=== PATIENT | male | born 1940 | race Two or more races ===

== ENCOUNTER 2017-10-29 15:20 | Outpatient (CLI) | payer OTHER ==
[~2017-10-29 15:20] MED LIST: ASA-EC81 MG; CIPRO500 MG PO; FINASTERIDE5 MG; LIPITOR20 MG; SYNTHROID50 MCG
== END 2017-10-29 15:28 | disposition home or self-care (01) ==
LOC: LAB 15:20
DX: D72.821 Monocytosis (symptomatic) (principal); D51.3 Other dietary vitamin B12 deficiency anemia; D51.1 Vitamin B12 deficiency anemia due to selective vitamin B12 malabsorption with proteinuria; I10 Essential (primary) hypertension; I48.2 Chronic atrial fibrillation; E03.8 Other specified hypothyroidism; E78.2 Mixed hyperlipidemia; N40.0 Benign prostatic hyperplasia without lower urinary tract symptoms; D50.8 Other iron deficiency anemias; D51.8 Other vitamin B12 deficiency anemias; D55.0 Anemia due to glucose-6-phosphate dehydrogenase [G6PD] deficiency; E04.2 Nontoxic multinodular goiter; E06.3 Autoimmune thyroiditis

== ENCOUNTER 2017-11-01 08:04 | Outpatient (CLI) | payer OTHER | END 2017-11-01 11:51 | disposition home or self-care (01) | LOC: SONOGRAMA 08:04 | DX: E04.2 Nontoxic multinodular goiter (principal); E03.8 Other specified hypothyroidism; D72.821 Monocytosis (symptomatic); D51.3 Other dietary vitamin B12 deficiency anemia; D51.1 Vitamin B12 deficiency anemia due to selective vitamin B12 malabsorption with proteinuria; I10 Essential (primary) hypertension; I48.2 Chronic atrial fibrillation; E78.2 Mixed hyperlipidemia; N40.0 Benign prostatic hyperplasia without lower urinary tract symptoms; E06.3 Autoimmune thyroiditis ==

== ENCOUNTER 2017-11-19 07:52 | Outpatient (CLI) | payer OTHER | END 2017-11-19 08:48 | disposition home or self-care (01) | LOC: RAD 07:52 | DX: M77.31 Calcaneal spur, right foot (principal); M77.32 Calcaneal spur, left foot ==

== ENCOUNTER 2018-02-25 07:46 | Outpatient (CLI) | payer OTHER | END 2018-02-25 07:57 | disposition home or self-care (01) | LOC: LAB 07:46 | DX: D51.1 Vitamin B12 deficiency anemia due to selective vitamin B12 malabsorption with proteinuria (principal); D72.821 Monocytosis (symptomatic); D51.3 Other dietary vitamin B12 deficiency anemia; I10 Essential (primary) hypertension; I48.2 Chronic atrial fibrillation; E03.8 Other specified hypothyroidism; E78.2 Mixed hyperlipidemia; N40.0 Benign prostatic hyperplasia without lower urinary tract symptoms; D50.8 Other iron deficiency anemias; D51.8 Other vitamin B12 deficiency anemias; D51.0 Vitamin B12 deficiency anemia due to intrinsic factor deficiency ==

== ENCOUNTER 2018-07-01 07:39 | Outpatient (CLI) | payer OTHER | END 2018-07-01 07:48 | disposition home or self-care (01) | LOC: LAB 07:39 | DX: D51.0 Vitamin B12 deficiency anemia due to intrinsic factor deficiency (principal); D51.1 Vitamin B12 deficiency anemia due to selective vitamin B12 malabsorption with proteinuria; D72.821 Monocytosis (symptomatic); D51.3 Other dietary vitamin B12 deficiency anemia; I10 Essential (primary) hypertension; I48.2 Chronic atrial fibrillation; E03.8 Other specified hypothyroidism; E78.2 Mixed hyperlipidemia; N40.0 Benign prostatic hyperplasia without lower urinary tract symptoms ==

== ENCOUNTER → 2019-01-20 | Outpatient (CLI) | payer OTHER | END | disposition home or self-care (01) | LOC: LAB 07:34 | DX: D51.0 Vitamin B12 deficiency anemia due to intrinsic factor deficiency (principal); D51.1 Vitamin B12 deficiency anemia due to selective vitamin B12 malabsorption with proteinuria; D72.821 Monocytosis (symptomatic); D51.3 Other dietary vitamin B12 deficiency anemia; I10 Essential (primary) hypertension; I48.2 Chronic atrial fibrillation; E03.8 Other specified hypothyroidism; E78.2 Mixed hyperlipidemia; N40.0 Benign prostatic hyperplasia without lower urinary tract symptoms; D50.8 Other iron deficiency anemias; D51.8 Other vitamin B12 deficiency anemias; R97.0 Elevated carcinoembryonic antigen [CEA]; R97.8 Other abnormal tumor markers ==

== ENCOUNTER → 2019-08-04 07:14 | Outpatient (CLI) | payer OTHER | END | disposition home or self-care (01) | LOC: LAB 07:14 | DX: D51.0 Vitamin B12 deficiency anemia due to intrinsic factor deficiency (principal); D51.1 Vitamin B12 deficiency anemia due to selective vitamin B12 malabsorption with proteinuria; D72.821 Monocytosis (symptomatic); D51.3 Other dietary vitamin B12 deficiency anemia; E03.8 Other specified hypothyroidism; E78.2 Mixed hyperlipidemia; N40.0 Benign prostatic hyperplasia without lower urinary tract symptoms; D50.8 Other iron deficiency anemias; K90.89 Other intestinal malabsorption; R97.0 Elevated carcinoembryonic antigen [CEA]; R97.8 Other abnormal tumor markers; R97.20 Elevated prostate specific antigen [PSA] ==

== ENCOUNTER 2021-09-28 14:42 | Outpatient (CLI) | payer OTHER | END 2021-09-28 14:50 | disposition home or self-care (01) | LOC: RAD 14:42 | PROVIDERS: ATTEND Internal Medicine Cardiovascular Disease | DX: M17.11 Unilateral primary osteoarthritis, right knee (principal) ==

== ENCOUNTER 2022-11-29 15:20 | Outpatient (CLI) | payer OTHER | END 2022-11-29 15:31 | disposition home or self-care (01) | LOC: SONOGRAMA 15:20 | PROVIDERS: ATTEND Urology | DX: R33.9 Retention of urine, unspecified (principal); N40.0 Benign prostatic hyperplasia without lower urinary tract symptoms; N47.6 Balanoposthitis ==

== ENCOUNTER 2023-07-16 06:47 | Outpatient (CLI) | payer OTHER ==
[2023-07-16 08:16] LABS: HEMATOCRIT 43.7 % (39.0-48.0); HEMOGLOBIN 14.4 g/dL (13-16.00); MEAN CORPUSCULAR HEMOGLOBIN 30.6 pg (27.00-32.0); MEAN CORPUSCULAR HGB CONC 32.9 g/dl (32.0-36.0); PLATELET COUNT 143 K/uL (150-450); RED CELL DISTRIBUTION WIDTH 13.8 % (11.5-14.5)
[2023-07-16 08:56] LABS: MANUAL PLATELET COUNT 220
[2023-07-16 08:57] LABS: PLATELET ESTIMATE NORMAL (NORMAL)
[2023-07-16 09:13] LABS: ALBUMIN 4.1 gm/dL (3.4-5.0); BILIRUBIN TOTAL 0.8 mg/dL (0.3-1.2); CALCIUM 8.8 mg/dL (8.5-10.1); CREATININE SERUM 1.02 mg/dL (0.70-1.30); GFR 70.27; GLOBULINA 2.6 G/DL (2.4-3.5); POTASSIUM 4.21 mEq/L (3.5-5.1); PROSTATIC SPECIFIC ANTIGEN 2.14 NG/ML (0.010-4.00); TOTAL PROTEIN 6.7 gm/dL (6.4-8.2); TSH 2.9 uIU/mL (0.358-3.74)
[2023-07-16 09:50] LABS: FOLIC ACID 16.13 ng/ml (4.78-20); VITAMIN D3 25 HYDROXY 35.59 ng/ml (30-120)
== END 2023-07-16 06:48 | disposition home or self-care (01) ==
LOC: LAB 06:47
PROVIDERS: ATTEND Internal Medicine Hematology & Oncology
DX: D50.8 Other iron deficiency anemias (principal); I10 Essential (primary) hypertension; D51.0 Vitamin B12 deficiency anemia due to intrinsic factor deficiency; D51.1 Vitamin B12 deficiency anemia due to selective vitamin B12 malabsorption with proteinuria; D72.821 Monocytosis (symptomatic); D51.3 Other dietary vitamin B12 deficiency anemia; I48.20 Chronic atrial fibrillation, unspecified; E03.8 Other specified hypothyroidism; E78.2 Mixed hyperlipidemia; N40.0 Benign prostatic hyperplasia without lower urinary tract symptoms; D51.8 Other vitamin B12 deficiency anemias; E55.9 Vitamin D deficiency, unspecified; R97.0 Elevated carcinoembryonic antigen [CEA]; R97.20 Elevated prostate specific antigen [PSA]

== ENCOUNTER 2023-10-22 13:21 | Outpatient (CLI) | payer OTHER | END 2023-10-22 13:23 | disposition home or self-care (01) | LOC: NUCLEAR 13:21 | PROVIDERS: ATTEND Internal Medicine Sports Medicine | DX: M81.0 Age-related osteoporosis without current pathological fracture (principal) ==

== ENCOUNTER 2023-12-03 14:48 | Outpatient (CLI) | payer OTHER | END 2023-12-03 14:55 | disposition home or self-care (01) | LOC: SONOGRAMA 14:48 | PROVIDERS: ATTEND Urology | DX: N40.0 Benign prostatic hyperplasia without lower urinary tract symptoms (principal); R31.1 Benign essential microscopic hematuria; R33.9 Retention of urine, unspecified ==

== ENCOUNTER 2024-04-21 07:14 | Outpatient (CLI) | payer OTHER ==
[~2024-04-21 07:14] MED LIST changes: +ELIQUIS2.5 MG
[2024-04-21 08:02] LABS: HEMATOCRIT 42.5 % (39.0-48.0); HEMOGLOBIN 14.3 g/dL (13-16.00); MEAN CELL VOLUME 91.4 fL (80.0-100.00); MEAN CORPUSCULAR HEMOGLOBIN 30.9 pg (27.00-32.0); MEAN CORPUSCULAR HGB CONC 33.8 g/dl (32.0-36.0); PLATELET COUNT 147 K/uL (150-450); RED BLOOD COUNT 4.65 M/uL (4.00-6.00); RED CELL DISTRIBUTION WIDTH 14.6 % (11.5-14.5)
[2024-04-21 09:06] LABS: BILIRUBIN TOTAL 0.77 mg/dL (0.3-1.2); CALCIUM 8.8 mg/dL (8.5-10.1); CREATININE SERUM 0.92 mg/dL (0.70-1.30); GFR 78.96; GLOBULINA 2.7 G/DL (2.4-3.5); POTASSIUM 4.8 mEq/L (3.5-5.1); PROSTATIC SPECIFIC ANTIGEN 2.46 NG/ML (0.010-4.00); T4 FREE 0.89 NG/ML (0.76-1.46); TOTAL PROTEIN 6.7 gm/dL (6.4-8.2); TSH 1.93 uIU/mL (0.358-3.74)
[2024-04-21 09:16] LABS: MANUAL PLATELET COUNT 286
[2024-04-21 09:18] LABS: PLATELET ESTIMATE NORMAL (NORMAL)
[2024-04-21 10:18] LABS: FOLIC ACID 14.81 ng/ml (4.78-20); VITAMIN D3 25 HYDROXY 39.93 ng/ml (30-120)
== END 2024-04-21 07:19 | disposition home or self-care (01) ==
LOC: LAB 07:14
PROVIDERS: ATTEND Internal Medicine Hematology & Oncology
DX: D51.0 Vitamin B12 deficiency anemia due to intrinsic factor deficiency (principal); D51.1 Vitamin B12 deficiency anemia due to selective vitamin B12 malabsorption with proteinuria; D72.821 Monocytosis (symptomatic); D51.3 Other dietary vitamin B12 deficiency anemia; I10 Essential (primary) hypertension; I48.20 Chronic atrial fibrillation, unspecified; E03.8 Other specified hypothyroidism; E79.2 Myoadenylate deaminase deficiency; N40.0 Benign prostatic hyperplasia without lower urinary tract symptoms; D50.8 Other iron deficiency anemias; R79.9 Abnormal finding of blood chemistry, unspecified; R74.02 Elevation of levels of lactic acid dehydrogenase [LDH]; K76.89 Other specified diseases of liver; E55.9 Vitamin D deficiency, unspecified; C25.9 Malignant neoplasm of pancreas, unspecified; R97.0 Elevated carcinoembryonic antigen [CEA]

== ENCOUNTER → 2024-10-27 07:10 | Outpatient (CLI) | payer OTHER ==
[2024-10-27 08:31] LABS: HEMATOCRIT 44.7 % (39.0-48.0); MEAN CELL VOLUME 92.9 fL (80.0-100.00); MEAN CORPUSCULAR HEMOGLOBIN 31.1 pg (27.00-32.0); MEAN CORPUSCULAR HGB CONC 33.5 g/dl (32.0-36.0); PLATELET COUNT 172 K/uL (150-450); RED BLOOD COUNT 4.81 M/uL (4.00-6.00); RED CELL DISTRIBUTION WIDTH 14.4 % (11.5-14.5)
[2024-10-27 09:24] LABS: ALBUMIN 3.9 gm/dL (3.4-5.0); BILIRUBIN TOTAL 1.1 mg/dL (0.3-1.2); CALCIUM 9.5 mg/dL (8.5-10.1); CREATININE SERUM 1.02 mg/dL (0.70-1.30); GFR 69.92; GLOBULINA 2.9 G/DL (2.4-3.5); POTASSIUM 4.57 mEq/L (3.5-5.1); PROSTATIC SPECIFIC ANTIGEN 1.76 NG/ML (0.010-4.00); T4 FREE 1.06 NG/ML (0.76-1.46); TOTAL PROTEIN 6.8 gm/dL (6.4-8.2); TSH 2.44 uIU/mL (0.358-3.74)
[2024-10-27 12:12] LABS: FOLIC ACID 18.89 ng/ml (4.78-20); VITAMIN D3 25 HYDROXY 38.43 ng/ml (30-120)
[2024-10-29 08:48] LABS: MANUAL PLATELET COUNT 218; PLATELET ESTIMATE NORMAL (NORMAL)
== END | disposition home or self-care (01) ==
LOC: LAB 07:10
PROVIDERS: ATTEND Internal Medicine Hematology & Oncology
DX: D50.8 Other iron deficiency anemias (principal); R79.9 Abnormal finding of blood chemistry, unspecified; I10 Essential (primary) hypertension; R74.02 Elevation of levels of lactic acid dehydrogenase [LDH]; K76.89 Other specified diseases of liver; D51.8 Other vitamin B12 deficiency anemias; E55.9 Vitamin D deficiency, unspecified; E03.8 Other specified hypothyroidism; R97.8 Other abnormal tumor markers; R97.0 Elevated carcinoembryonic antigen [CEA]; D51.0 Vitamin B12 deficiency anemia due to intrinsic factor deficiency; D51.1 Vitamin B12 deficiency anemia due to selective vitamin B12 malabsorption with proteinuria; D72.821 Monocytosis (symptomatic); D51.3 Other dietary vitamin B12 deficiency anemia; D72.818 Other decreased white blood cell count; I48.20 Chronic atrial fibrillation, unspecified; E78.2 Mixed hyperlipidemia; N40.0 Benign prostatic hyperplasia without lower urinary tract symptoms

== ENCOUNTER 2025-02-02 07:30 | Outpatient (CLI) | payer OTHER | END 2025-02-02 07:38 | disposition home or self-care (01) | LOC: RAD 07:30 | PROVIDERS: ATTEND Specialist | DX: M25.559 Pain in unspecified hip (principal); Z96.649 Presence of unspecified artificial hip joint ==

== ENCOUNTER 2025-04-06 07:57 | Outpatient (CLI) | payer OTHER | END 2025-04-06 14:57 | disposition home or self-care (01) | LOC: LAB 07:57 | PROVIDERS: ATTEND Orthopaedic Surgery | DX: E55.9 Vitamin D deficiency, unspecified (principal); M85.9 Disorder of bone density and structure, unspecified; E56.1 Deficiency of vitamin K ==

== ENCOUNTER 2025-06-02 16:00 | Outpatient (CLI) | payer OTHER | END 2025-06-02 16:05 | disposition home or self-care (01) | LOC: RAD 16:00 | PROVIDERS: ATTEND Internal Medicine | DX: M25.561 Pain in right knee (principal) ==

== ENCOUNTER → 2025-07-06 07:48 | Outpatient (CLI) | payer OTHER ==
[2025-07-06 08:38] LABS: BASO % 0.7 % (0.1-1.2); EOS # 0.08 (0.04-0.54); EOS % 1.8 % (0.7-7.0); LYMPH # 1.28 (1.18-3.74); LYMPH % 28.8 % (19.3-53.1); MEAN PLATELET VOLUME 10.90 fl (9.4-12.4); MONO # 0.64 (0.24-0.82); NEUT # 2.41 (1.56-6.13); NEUT % 54.1 % (34.0-71.1); RED CELL DISTRIBUTION WIDTH 13.9 % (11.6-14.4)
[2025-07-06 08:45] LABS: MONO % 14.4 % (4.7-12.5)
[2025-07-06 09:30] LABS: % SATURACION 33.5 % (20-50); ALT/SGPT 49.0 U/L (12-78); AST/SGOT 33.0 U/L (15-37); BILIRUBIN TOTAL 0.88 mg/dL (0.3-1.2); BUN CREA RATIO 23.0 (7.0-25.0); CREATININE SERUM 0.84 mg/dL (0.70-1.30); FE 99.0 ug/dl (65-175); GFR 87.48; GLOBULINA 2.8 G/DL (2.4-3.5); GLUCOSE FASTING 79.0 mg/dL (65-100); LDH 219.0 U/L (87-241); OSMOLALITY SERUM 286.0 MOSM/KG (275-295)
[2025-07-06 11:18] LABS: FOLIC ACID 18.01 ng/ml (4.78-20)
== END | disposition home or self-care (01) ==
LOC: LAB 07:48
PROVIDERS: ATTEND Internal Medicine Hematology & Oncology
DX: D51.0 Vitamin B12 deficiency anemia due to intrinsic factor deficiency (principal); D51.1 Vitamin B12 deficiency anemia due to selective vitamin B12 malabsorption with proteinuria; D72.821 Monocytosis (symptomatic); D51.3 Other dietary vitamin B12 deficiency anemia; I10 Essential (primary) hypertension; E03.8 Other specified hypothyroidism; E78.2 Mixed hyperlipidemia; N40.0 Benign prostatic hyperplasia without lower urinary tract symptoms; D50.8 Other iron deficiency anemias; R79.9 Abnormal finding of blood chemistry, unspecified; R74.02 Elevation of levels of lactic acid dehydrogenase [LDH]; K76.89 Other specified diseases of liver